=== PATIENT | male | born 1990 | race Caucasian/White ===

== ENCOUNTER 2020-12-21 08:57 | Emergency (ER) | payer OTHER, BC ==
--- NOTE | 2020-12-21 09:34 | EDM.PDOC ---
ED HPI GENERAL MEDICAL PROBLEM - General Chief Complaint: Laceration Stated Complaint: laceration Time Seen by Provider: 12/21/20 09:10 Source of Information: Reports: Patient History Limitations: Reports: No Limitations - History of Present Illness INITIAL COMMENTS - FREE TEXT/NARRATIVE: wound laceration to the left hand - from a glass at work. 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 Onset: Sudden Duration: Minutes: (30) Location: Reports: Upper Extremity, Left Right Hand Pain Score (Numeric/FACES): 1 - Related Data Allergies Allergy/AdvReac Type Severity Reaction Status Date / Time No Known Allergies Allergy Verified 12/21/20 08:58 Home Meds: Home Meds NK [No Known Home Meds] 12/21/20 [History] Past Medical History Psychiatric History: Reports: Anxiety Social & Family History - Recreational Drug Use Recreational Drug Use: No ED ROS GENERAL - Review of Systems Review Of Systems: See Below Constitutional: Reports: No Symptoms HEENT: Reports: No Symptoms Respiratory: Reports: No Symptoms Cardiovascular: Reports: No Symptoms : Reports: No Symptoms Neurological: Reports: No Symptoms Psychiatric: Reports: No Symptoms ED EXAM, SKIN/RASH Exam: See Below Exam Limited By: No Limitations General Appearance: Alert, WD/WN, No Apparent Distress Eye Exam: Bilateral Eye: EOMI Head: Atraumatic Respiratory/Chest: No Respiratory Distress Cardiovascular: Normal Peripheral Pulses GI/Abdominal: Normal Bowel Sounds, Soft, Non-Tender Extremities: Other (left hand palm- 2.5 cm superficial laceration - no active bleeding. ) ED SKIN PROCEDURES - Laceration/Wound Repair Left Upper Hand Appearance: Superficial Distal NVT: Neuro & Vascular Intact, No Tendon Injury Closed with: Dermabond Lac/Wound length In cm: 2.5 Sterile Dressing Applied: Nurse Tetanus Status Addressed: Yes Complications: No Course - Vital Signs Last Recorded V/S: Last Vital Signs Temp 36.6 C 12/21/20 09:03 Pulse 86 12/21/20 09:03 Resp 18 12/21/20 09:03 BP 151/86 H 12/21/20 09:03 Pulse Ox 99 12/21/20 09:03 - Re-Assessments/Exams Free Text/Narrative Re-Assessment/Exam: wound was washed and cleaned surgical glue was applied steri-strips sterile dressing Departure - Departure Time of Disposition: 09:33 Disposition: Home, Self-Care 01 Clinical Impression: Laceration of left hand Qualifiers: Encounter type: initial encounter Foreign body presence: without foreign body Qualified Code(s): S61.412A - Laceration without foreign body of left hand, initial encounter - Discharge Information *PRESCRIPTION DRUG MONITORING PROGRAM REVIEWED*: Not Applicable *COPY OF PRESCRIPTION DRUG MONITORING REPORT IN PATIENT SEJAL: Not Applicable Instructions: Laceration Care, Adult, [id number], Sutures, Wells, or Adhesive Wound Closure, [id number] Referrals: PCP,None [Primary Care Provider] - Forms: ED Department Discharge Additional Instructions: - keep wound dry and clean - watch for signs of wound infection - call of any . -rest hand for the next 48 hrs - avoid any contact sports - tylenol or ibuprofen for pain as needed Sepsis Event Note (ED) - Evaluation Sepsis Screening Result: No Definite Risk - Focused Exam Vital Signs: Vital Signs Temp Pulse Resp BP Pulse Ox 12/21/20 09:03 36.6 C 86 18 151/86 H 99 - Problem List & Annotations (1) Laceration of left hand SNOMED Code(s): 203424892 Code(s): S61.412A - LACERATION WITHOUT FOREIGN BODY OF LEFT HAND, INIT ENCNTR Status: Acute Priority: Low Current Visit: Yes Qualifiers: Encounter type: initial encounter Foreign body presence: without foreign body Qualified Code(s): S61.412A - Laceration without foreign body of left hand, initial encounter - Problem List Review Problem List Initiated/Reviewed/Updated: Yes - Assessment/Plan Plan: - keep wound dry and clean - watch for signs of wound infection - call of any . -rest hand for the next 48 hrs - avoid any contact sports - tylenol or ibuprofen for pain as needed
== END 2020-12-21 09:36 | disposition home or self-care (01) ==
LOC: LB.ED 08:57
DX: S61.412A Laceration without foreign body of left hand, initial encounter (principal); W25.XXXA Contact with sharp glass, initial encounter; Y99.0 Civilian activity done for income or pay
CPT/HCPCS: 12001; 99282-25